=== PATIENT | male | born 1990 | race Caucasian/White ===

== ENCOUNTER 2023-07-31 14:59 | Emergency (ER) | payer OTHER, SELFPAY ==
[2023-07-31] MEDS ORDERED: Acetaminophen 500 MG TAB ONE (17:38)
[2023-07-31 17:59] LABS: SARS-CoV-2 NAA Rapid Test Not Detected (NotDetected)
== END 2023-07-31 20:27 | disposition home or self-care (01) ==
LOC: CSHERS 14:59
DX: J10.1 Influenza due to other identified influenza virus with other respiratory manifestations (principal); I10 Essential (primary) hypertension; F17.210 Nicotine dependence, cigarettes, uncomplicated
CPT/HCPCS: 71046; 87081; 87430